=== PATIENT | male | born 1960 | race Caucasian/White ===

== ENCOUNTER 2018-04-11 08:35 | Inpatient (IN) ==
--- NOTE | 2018-04-11 09:06 | ED ---
HPI General Chief Complaint: Psychiatric Symptoms Stated Complaint: Psych Screen/POPD Time Seen by Provider: 04/11/18 08:59 Source: patient Mode of arrival: ambulatory Limitations: no limitations History of Present Illness HPI Narrative: 57-year-old male presents to the emergency department under Nunes act. According to the Nunes act report the patient has been acting erratic over the last month after returning from [facility] and viktoriya dengue fever. He has been hearing voices and thoughts to harm others. He stated to law enforcement that he would kick him in the "balls" in order to be Nunes acted. The patient requested help. He is not currently on medication are diagnosed with any disorder. The patient through his suitcase and while [place]. On my examination the patient states he has been hearing "a voice" for some time now, and has been telling him to harm himself at times and to do other things. He also states the voice is trying to convince him that he is "the antichrist." Today the voices told him to focus puller and dropped his suitcase off on I for and then to throw his wallet out the window, which he did both. He says he has been feeling depressed since his divorce about 3 years ago and this is when onset of symptoms, mainly occurred. Apparently they have worsened after viktoriya dengue fever in [facility] a month ago. Denies suicidal or homicidal ideations. Has had thoughts of suicide in the past and has thought of shooting himself in the face with a gun. 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 Has access to guns in his home. Has someone who can remove the weapons from his home. Denies history of suicidal attempts, only thoughts. Reports hearing voices. Denies visual hallucinations. Denies drug, alcohol, tobacco use. Has no emergent medical complaints at this time. Denies chest pain, shortness of breath, abdominal pain, change in urine or stool. Has seen a psychiatrist in the past after his divorce for depression, but without medicinal treatment. Denies other psychiatric history. History of hypothyroidism and takes Synthroid. Has a primary care provider for follow-up. No known allergies. Has no other medical complaints. No other modifying factors or associated signs and symptoms. Related Data Home Medications Medication Instructions Recorded Confirmed levothyroxine 75 mcg PO DAILY 04/11/18 04/11/18 niacin 1,000 mg PO DAILY 04/11/18 04/11/18 Allergies Allergy/AdvReac Type Severity Reaction Status Date / Time No Known Allergies Allergy Verified 04/11/18 08:59 Review of Systems ROS: all other systems reviewed are negative PMFSH History History Provided By: Patient Medical History Medical History Hypothyroid (Acute) Social History Social History Substance History: No History of Abuse and Past History Second Hand Smoke Exposure: No Smoking Status: Former smoker Tobacco Type: Cigarettes How Often Do You Have a Drink Containing Alcohol: 2 to 3 times a week Recent Travel in [facility] within the Last 8 Weeks: No Recent Out of Country Travel within the Last 8 Weeks: No Exam Narrative Exam Narrative: GENERAL: Well-nourished, well-developed male patient, in no acute distress SKIN: Warm and dry. HEAD: Atraumatic. Normocephalic. EYES: Pupils equal and round. ENT: Mucosa pink and moist. NECK: Supple. Trachea midline. CARDIOVASCULAR: Regular rate and rhythm. No murmur appreciated. RESPIRATORY: No accessory muscle use. Clear to auscultation. Breath sounds equal bilaterally. GASTROINTESTINAL: Abdomen soft, non-tender, nondistended. Hepatic and splenic margins not palpable. Bowel sounds are active 4 quadrants. MUSCULOSKELETAL: No obvious deformities. No clubbing. No cyanosis. No edema. NEUROLOGICAL: Awake and alert. Oriented 3. No obvious cranial nerve deficits. Motor grossly within normal limits. Normal speech. Moves all extremities. 5/5 strength to all extremities. PSYCHIATRIC: No delusional thought processes. No hallucinations. Course Initial Documented Vital Signs Temperature 97.5 F L 04/11/18 08:44 Pulse Rate 75 04/11/18 08:44 Respiratory Rate 18 04/11/18 08:44 Blood Pressure 181/86 H 04/11/18 08:44 Pulse Oximetry 97 04/11/18 08:44 Last Documented Vital Signs Temperature 98.1 F 04/14/18 05:08 Pulse Rate 71 04/14/18 05:08 Respiratory Rate 16 04/14/18 05:08 Blood Pressure 104/58 L 04/14/18 05:08 Pulse Oximetry 98 04/13/18 16:35 Medical Decision Making MDM Narrative Medical decision making narrative: Patient presents under a Nunes act. Physical examination and vital signs are essentially unremarkable. Patient has no medical complaints to report. Psych screen has been ordered. If the laboratory results are unremarkable, the patient will be medically cleared for psychiatric evaluation and disposition. Medical Screen Exam Complete: Yes Emergency Medical Condition: Yes Differential Diagnosis Differential Diagnosis: Hallucinations, psychosis, suicidal ideation, homicidal ideation, schizophrenia, bipolar, medical clearance for psychiatric evaluation Lab Data Result diagrams: 04/11/18 10:00 04/13/18 08:15 Lab Results 04/11/18 04/11/18 04/11/18 Range/Units 10:00 10:00 10:00 WBC 8.0 (4.0-11.0) th/mm3 RBC 4.56 (4.50-5.90) mil/mm3 Hgb 15.3 (13.0-17.0) gm/dL Hct 43.8 (39.0-51.0) % MCV 95.8 (80.0-100.0) fL MCH 33.5 (27.0-34.0) pg MCHC 35.0 (32.0-36.0) % RDW 13.4 (11.6-17.2) % Plt Count 303 (150-450) th/mm3 MPV 8.9 (7.0-11.0) fL Neut % (Auto) 76.3 H (16.0-70.0) % Lymph % (Auto) 15.3 (9.0-44.0) % Sanders % (Auto) 7.9 (0.0-8.0) % Eos % (Auto) 0.3 (0.0-4.0) % Baso % (Auto) 0.2 (0.0-2.0) % Neut # (Auto) 6.1 (1.8-7.7) th/mm3 Lymph # (Auto) 1.2 (1.0-4.8) th/mm3 Sanders # (Auto) 0.6 (0.0-0.9) th/mm3 Eos # (Auto) 0.0 (0.0-0.4) th/mm3 Baso # (Auto) 0.0 (0.0-0.2) th/mm3 WBC Differential . Differential Comment Auto diff final ESR (0-20) mm/hr Sodium 136 (136-145) meq/L Potassium 3.8 (3.5-5.1) meq/L Chloride 100 (98-107) meq/L Carbon Dioxide 25.4 (21.0-32.0) meq/L Anion Gap 11 (5-15) meq/L BUN 8 (7-18) mg/dL Creatinine 1.16 (0.60-1.30) mg/dL Estimated GFR 65 L (>89) mL/min Random Glucose 108 H (74-106) mg/dL Hemoglobin A1c (4.3-6.0) % Calcium 8.6 (8.5-10.1) mg/dL Magnesium 1.9 (1.5-2.5) mg/dL Total Bilirubin 1.4 H (0.2-1.0) mg/dL AST 29 (15-37) U/L ALT 35 (12-78) U/L Alkaline Phosphatase 74 (45-117) U/L Ammonia (11-32) mcmol/L Total Protein 7.8 (6.4-8.2) g/dL Albumin 4.1 (3.4-5.0) g/dL Triglycerides (42-150) mg/dL Cholesterol (120-200) mg/dL LDL Cholesterol, Calc (0-99) mg/dL HDL Cholesterol (40.0-60.0) mg/dL Cholesterol/HDL Ratio Ratio Vitamin B12 (193-986) pg/mL Folate (3.1-17.5) ng/mL TSH 1.510 (0.358-3.740) uIU/mL Salicylates Less than 1.7 L (2.8-20.0) mg/dL Urine Opiates Screen (Neg) Acetaminophen Less than 2.0 L (10.0-30.0) mcg/mL Ur Barbiturates Screen (Neg) Ur Amphetamines Screen (Neg) U Benzodiazepines Scrn (Neg) Urine Cocaine Screen (Neg) U Cannabinoids Screen (Neg) Serum Alcohol Less than 3 (0-5) mg/dL HIV 1&2 Ab/P24 Ag 4thGn (Nonreactive) 04/11/18 04/12/18 04/12/18 Range/Units 10:00 08:30 08:30 WBC (4.0-11.0) th/mm3 RBC (4.50-5.90) mil/mm3 Hgb (13.0-17.0) gm/dL Hct (39.0-51.0) % MCV (80.0-100.0) fL MCH (27.0-34.0) pg MCHC (32.0-36.0) % RDW (11.6-17.2) % Plt Count (150-450) th/mm3 MPV (7.0-11.0) fL Neut % (Auto) (16.0-70.0) % Lymph % (Auto) (9.0-44.0) % Sanders % (Auto) (0.0-8.0) % Eos % (Auto) (0.0-4.0) % Baso % (Auto) (0.0-2.0) % Neut # (Auto) (1.8-7.7) th/mm3 Lymph # (Auto) (1.0-4.8) th/mm3 Sanders # (Auto) (0.0-0.9) th/mm3 Eos # (Auto) (0.0-0.4) th/mm3 Baso # (Auto) (0.0-0.2) th/mm3 WBC Differential Differential Comment ESR (0-20) mm/hr Sodium (136-145) meq/L Potassium (3.5-5.1) meq/L Chloride (98-107) meq/L Carbon Dioxide (21.0-32.0) meq/L Anion Gap (5-15) meq/L BUN (7-18) mg/dL Creatinine (0.60-1.30) mg/dL Estimated GFR (>89) mL/min Random Glucose (74-106) mg/dL Hemoglobin A1c 5.2 (4.3-6.0) % Calcium (8.5-10.1) mg/dL Magnesium (1.5-2.5) mg/dL Total Bilirubin (0.2-1.0) mg/dL AST (15-37) U/L ALT (12-78) U/L Alkaline Phosphatase (45-117) U/L Ammonia (11-32) mcmol/L Total Protein (6.4-8.2) g/dL Albumin (3.4-5.0) g/dL Triglycerides 82 (42-150) mg/dL Cholesterol 234 H (120-200) mg/dL LDL Cholesterol, Calc 162 H (0-99) mg/dL HDL Cholesterol 55.3 (40.0-60.0) mg/dL Cholesterol/HDL Ratio 4.23 Ratio Vitamin B12 (193-986) pg/mL Folate (3.1-17.5) ng/mL TSH (0.358-3.740) uIU/mL Salicylates (2.8-20.0) mg/dL Urine Opiates Screen Neg (Neg) Acetaminophen (10.0-30.0) mcg/mL Ur Barbiturates Screen Neg (Neg) Ur Amphetamines Screen Neg (Neg) U Benzodiazepines Scrn Neg (Neg) Urine Cocaine Screen Neg (Neg) U Cannabinoids Screen Neg (Neg) Serum Alcohol (0-5) mg/dL HIV 1&2 Ab/P24 Ag 4thGn (Nonreactive) 04/12/18 04/12/18 04/12/18 Range/Units 13:04 13:04 13:04 WBC (4.0-11.0) th/mm3 RBC (4.50-5.90) mil/mm3 Hgb (13.0-17.0) gm/dL Hct (39.0-51.0) % MCV (80.0-100.0) fL MCH (27.0-34.0) pg MCHC (32.0-36.0) % RDW (11.6-17.2) % Plt Count (150-450) th/mm3 MPV (7.0-11.0) fL Neut % (Auto) (16.0-70.0) % Lymph % (Auto) (9.0-44.0) % Sanders % (Auto) (0.0-8.0) % Eos % (Auto) (0.0-4.0) % Baso % (Auto) (0.0-2.0) % Neut # (Auto) (1.8-7.7) th/mm3 Lymph # (Auto) (1.0-4.8) th/mm3 Sanders # (Auto) (0.0-0.9) th/mm3 Eos # (Auto) (0.0-0.4) th/mm3 Baso # (Auto) (0.0-0.2) th/mm3 WBC Differential Differential Comment ESR (0-20) mm/hr Sodium (136-145) meq/L Potassium (3.5-5.1) meq/L Chloride (98-107) meq/L Carbon Dioxide (21.0-32.0) meq/L Anion Gap (5-15) meq/L BUN (7-18) mg/dL Creatinine (0.60-1.30) mg/dL Estimated GFR (>89) mL/min Random Glucose (74-106) mg/dL Hemoglobin A1c (4.3-6.0) % Calcium (8.5-10.1) mg/dL Magnesium (1.5-2.5) mg/dL Total Bilirubin (0.2-1.0) mg/dL AST (15-37) U/L ALT (12-78) U/L Alkaline Phosphatase (45-117) U/L Ammonia 16 (11-32) mcmol/L Total Protein (6.4-8.2) g/dL Albumin (3.4-5.0) g/dL Triglycerides (42-150) mg/dL Cholesterol (120-200) mg/dL LDL Cholesterol, Calc (0-99) mg/dL HDL Cholesterol (40.0-60.0) mg/dL Cholesterol/HDL Ratio Ratio Vitamin B12 671 (193-986) pg/mL Folate Greater than 20.0 H (3.1-17.5) ng/mL TSH (0.358-3.740) uIU/mL Salicylates (2.8-20.0) mg/dL Urine Opiates Screen (Neg) Acetaminophen (10.0-30.0) mcg/mL Ur Barbiturates Screen (Neg) Ur Amphetamines Screen (Neg) U Benzodiazepines Scrn (Neg) Urine Cocaine Screen (Neg) U Cannabinoids Screen (Neg) Serum Alcohol (0-5) mg/dL HIV 1&2 Ab/P24 Ag 4thGn Nonreactive (Nonreactive) 04/12/18 04/13/18 Range/Units 13:04 08:15 WBC (4.0-11.0) th/mm3 RBC (4.50-5.90) mil/mm3 Hgb (13.0-17.0) gm/dL Hct (39.0-51.0) % MCV (80.0-100.0) fL MCH (27.0-34.0) pg MCHC (32.0-36.0) % RDW (11.6-17.2) % Plt Count (150-450) th/mm3 MPV (7.0-11.0) fL Neut % (Auto) (16.0-70.0) % Lymph % (Auto) (9.0-44.0) % Sanders % (Auto) (0.0-8.0) % Eos % (Auto) (0.0-4.0) % Baso % (Auto) (0.0-2.0) % Neut # (Auto) (1.8-7.7) th/mm3 Lymph # (Auto) (1.0-4.8) th/mm3 Sanders # (Auto) (0.0-0.9) th/mm3 Eos # (Auto) (0.0-0.4) th/mm3 Baso # (Auto) (0.0-0.2) th/mm3 WBC Differential Differential Comment ESR 7 (0-20) mm/hr Sodium 140 (136-145) meq/L Potassium 3.7 (3.5-5.1) meq/L Chloride 105 (98-107) meq/L Carbon Dioxide 24.3 (21.0-32.0) meq/L Anion Gap 11 (5-15) meq/L BUN 15 (7-18) mg/dL Creatinine 1.18 (0.60-1.30) mg/dL Estimated GFR 63 L (>89) mL/min Random Glucose 131 H (74-106) mg/dL Hemoglobin A1c (4.3-6.0) % Calcium 8.7 (8.5-10.1) mg/dL Magnesium (1.5-2.5) mg/dL Total Bilirubin (0.2-1.0) mg/dL AST (15-37) U/L ALT (12-78) U/L Alkaline Phosphatase (45-117) U/L Ammonia (11-32) mcmol/L Total Protein (6.4-8.2) g/dL Albumin (3.4-5.0) g/dL Triglycerides (42-150) mg/dL Cholesterol (120-200) mg/dL LDL Cholesterol, Calc (0-99) mg/dL HDL Cholesterol (40.0-60.0) mg/dL Cholesterol/HDL Ratio Ratio Vitamin B12 (193-986) pg/mL Folate (3.1-17.5) ng/mL TSH (0.358-3.740) uIU/mL Salicylates (2.8-20.0) mg/dL Urine Opiates Screen (Neg) Acetaminophen (10.0-30.0) mcg/mL Ur Barbiturates Screen (Neg) Ur Amphetamines Screen (Neg) U Benzodiazepines Scrn (Neg) Urine Cocaine Screen (Neg) U Cannabinoids Screen (Neg) Serum Alcohol (0-5) mg/dL HIV 1&2 Ab/P24 Ag 4thGn (Nonreactive) Imaging Data Radiologist's impression: Head MRI 04/12/18 00:00 CONCLUSION: 1. Negative MR Brain with and without contrast. 2. No evidence of cerebral edema, meningeal enhancement, restricted diffusion or inflammatory disease. Discharge Plan Discharge Disposition Patient Disposition: 30 Still Patient Discharge Condition Condition: Stable Discharge Details Diagnosis: Encounter for psychiatric assessment Physicians Team ED Provider: Lisseth Weaver ED Midlevel Provider: Ellen Hernandez Primary Care Provider: Primary Care Stephanie Ordonez Attending Provider: Michael Harper Other Providers: Rosemary Jin ; Td Cardenas Discharge Interventions Interventions: ED Discharge Assessment Last Done: 04/11/18 20:44 Vital Signs Last Done: 04/11/18 18:02 Status ED Status: Left Department Discharge Information Discharge Date/Time: 04/11/18 20:45
[2018-04-11 10:21] LABS: Baso % (Auto) 0.2 % (0.0-2.0); Eos % (Auto) 0.3 % (0.0-4.0); Hematocrit 43.8 % (39.0-51.0); Hemoglobin 15.3 gm/dL (13.0-17.0); Lymph # (Auto) 1.2 th/mm3 (1.0-4.8); Lymph % (Auto) 15.3 % (9.0-44.0); Mean Corpuscular Hemoglobin 33.5 pg (27.0-34.0); Mean Corpuscular Volume 95.8 fL (80.0-100.0); Mean Platelet Volume 8.9 fL (7.0-11.0); Mono # (Auto) 0.6 th/mm3 (0.0-0.9); Mono % (Auto) 7.9 % (0.0-8.0); Neut # (Auto) 6.1 th/mm3 (1.8-7.7); Neut % (Auto) 76.3 % (16.0-70.0); Platelet Count 303 th/mm3 (150-450); Red Blood Count 4.56 mil/mm3 (4.50-5.90); Red Cell Distribution Width 13.4 % (11.6-17.2)
[2018-04-11 11:42] LABS: Alanine Aminotransferase 35 U/L (12-78); Albumin 4.1 g/dL (3.4-5.0); Anion Gap 11 meq/L (5-15); Aspartate Aminotransferase 29 U/L (15-37); Blood Urea Nitrogen 8 mg/dL (7-18); Calcium 8.6 mg/dL (8.5-10.1); Carbon Dioxide 25.4 meq/L (21.0-32.0); Chloride 100 meq/L (98-107); Glomerular Filtration Rate 65 mL/min (>89); Glucose,Random 108 mg/dL (74-106); Magnesium 1.9 mg/dL (1.5-2.5); Potassium 3.8 meq/L (3.5-5.1); Sodium 136 meq/L (136-145)
[2018-04-11 11:51] LABS: Alkaline Phosphatase 74 U/L (45-117); Total Protein 7.8 g/dL (6.4-8.2)
[2018-04-11 12:47] LABS: Amphetamine Screen,Urine Neg (Neg); Barbiturate Screen,Urine Neg (Neg); Cannabinoid Screen,Urine Neg (Neg); Cocaine Screen,Urine Neg (Neg)
[2018-04-11 13:12] LABS: Opiate Screen,Urine Neg (Neg)
[2018-04-11] MEDS ORDERED: LORazepam 1 MG Tablet PO PRN (21:23)
[2018-04-11] MEDS ORDERED: Acetaminophen 325 MG Tablet PO PRN (21:23)
[2018-04-11] MEDS ORDERED: Aluminum/Magnesium/Simethacone Susp 30 ML UDC PO PRN (21:23)
[2018-04-12] MEDS ORDERED: Haloperidol Inj 5 MG/ML Ampul ONE (05:44)
[2018-04-12] MEDS ORDERED: Haloperidol Inj 5 MG/ML Ampul IM ONE (06:00)
[2018-04-12 09:59] LABS: Chol/HDL Ratio 4.23 Ratio; HDL Cholesterol 55.3 mg/dL (40.0-60.0)
--- NOTE | 2018-04-12 11:42 | MH ---
cc: Td Ortega MD DATE OF ADMISSION: 04/11/2018 ADMITTING DIAGNOSIS: 1. Unspecified psychosis, rule out primary psychotic illness such as schizophrenia, rule out psychosis due to a general medical or neurological condition. LEGAL STATUS: The patient is presently capacitated to consent for medication/treatment as well as for admission. Voluntary status. HISTORY OF PRESENT ILLNESS: The patient is a 57-year-old male with no reported previous psychiatric diagnoses, who presents under a Nunes Act by [employer] alleging that the patient has been acting erratic over the last month since returning from [facility] and viktoriya Dengue fever. He has been hearing voices and thoughts to harm others. He stated to one of the responding officers that he would "kick him in the balls in order to be Nunes Acted." Reviewing the electronic medical record, I see no previous psychiatric contact within our system. The patient seen and examined with nurse. Chart reviewed. Case discussed with nursing staff. The patient apparently had an episode of severe auditory hallucinations overnight and requested and received Haldol and Ativan IM to good effect. He has been no behavioral problem this morning. On my examination today, the patient is calm and cooperative. 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 He reports that he never saw a physician because he presumed that he had Dengue fever and knew that there was nothing but symptomatic treatment for this. He says that these symptoms have since resolved. He reports that about 3 weeks ago, he began hearing voices saying that he is the antichrist. He reports that this is a male voice unfamiliar to him, intermittent in nature and occurring inside his head. He describes this voice as "an open war cordoba in my brain." He denies that the voices are specifically instructing him to hurt himself or anyone else. He says rather that he finds the voices to be maligned and was having thoughts of harm previously in order to avoid becoming the antichrist as he feared. He denies any suicidal or homicidal ideation, intent or plan at this time. He does note that these voices have happened several times in the past beginning around age 18 when he reports that he "renounced [employer] for a woman." He said that the last episode of voices occurred in 2013, again around some episode of a episcopalian crisis. Besides these voices, the patient endorses poor sleep and associated fatigue. He notes that the medications he received last night were helpful for his voices. I can elicit no depressive or hypomanic/manic symptoms besides the sleep disturbance. He does not describe any other hallucinatory material. No delusional material elicited. The remainder of the psychiatric ROS is negative. The patient has no acute physical complaints. PAST PSYCHIATRIC HISTORY: The patient denies a history of psychiatric diagnosis. He denies a history of inpatient or outpatient psychiatric treatment. He denies history of suicide attempts. FAMILY HISTORY: The patient denies family history of serious mental illness. He reports that he had a male cousin who by gunshot wound. CHEMICAL DEPENDENCY HISTORY: The patient reports a history of heavier drinking, but denies any substance use recently. SOCIAL HISTORY: The patient is with 1 son and a grandson. He is high school educated and previously worked as a police sergeant precinct for 25 years. He reports that he had been doing missionary work at the [facility] [employer] [place] in [facility]. He served 4 years in the [employer], but never saw combat. He lives alone. He does keep firearms in his home, but reports that his ex- will secure these. He denies any legal issues. He has never had any suicide plan involving a firearm. He is a Protestant. No reported history of trauma. PAST MEDICAL HISTORY: Includes a history of hypothyroidism, on Synthroid. MEDICATIONS: Include Synthroid and Niacin. ALLERGIES: NO KNOWN ALLERGIES. REVIEW OF SYSTEMS: Except as noted in HPI, all this is negative. PHYSICAL EXAMINATION: VITAL SIGNS: Temperature 98.6, pulse 85, respirations 18, blood pressure 143/84, pulse oximetry 97% on room air. GENERAL: Physical examination was completed by the ED provider. On my examination today, the patient appears to be in no acute physical distress. NEUROLOGICAL: No motor abnormalities noted. In particular, no tremor. No dystonia, no dyskinesia. LABORATORY DATA: Reviewed: CBC is unremarkable. CMP reveals decreased GFR at 65%, mild hyperglycemia in a nonfasting sample at 108 and hyperbilirubinemia at 1.4. TSH is within normal limits. Hemoglobin A1c is pending. Lipid panel reveals elevated total cholesterol and LDL cholesterol. Urine toxicology is negative. Alcohol level is undetectable. MENTAL STATUS EXAMINATION: The patient is in hospital attire. He is awake and alert and oriented x4. He is well groomed. Speech is within normal limits for rate, tone, and volume. Language and fund of knowledge are average. Focus and concentration are intact. Memory is grossly intact on clinical exam. Mood is fair and affect is full and reactive. Thought process linear. No loosening of associations. No delusional material elicited. Endorses auditory hallucinations as noted above. No other hallucinatory material. Denies suicidal or homicidal ideation, intent or plan. Insight and judgment are adequate. ASSESSMENT: This is a 57-year-old male with psychiatric history as detailed above, who presents under a Nunes Act. On my examination today, the patient reports onset over the last few weeks of auditory hallucinations saying that the patient will become the antichrist. These voices are particularly distressing for the patient, but seem to occur in isolation except for associated poor sleep. In particular, the patient does not describe any delusional material such as might be seen in a primary psychotic illness and does not describe any mood symptoms such as might be seen in a mood disorder with psychotic features. However, the patient does report a history of multiple previous episodes of auditory hallucinations similar to those experienced presently, and these episodes were reportedly self-limited and the patient did not seek psychiatric help interpreting them instead as a spiritual problem. It is possible that the patient has a primary psychotic illness, previously undiagnosed, but the report of febrile illness while working as a missionary in [facility] raises the specter of possible encephalitis or other neurological condition with psychiatric sequelae. I will plan to admit the patient to the Inpatient Psychiatric Unit for safety, observation and stabilization. Admit inpatient. Voluntary status. For symptomatic treatment of the patient's auditory hallucinations and poor sleep, I will initiate Zyprexa 5 mg at bedtime. I have discussed with the patient that this represents an empiric treatment while we explore etiological factors that may be driving his auditory hallucinations. Atarax as needed for anxiety. Melatonin as needed for sleep. R/B/A for medications discussed with the patient, and in particular, I have reviewed with him the motor and metabolic side effects of antipsychotic therapy. To further workup the possibility of general medical or neurological cause, I will obtain an MRI of the brain with and without contrast and also obtain an EEG. I will also pursue general psychosis workup laboratories. I will also request infectious disease and neurology consultation in hopes that consultants may provide further recommendations regarding workup and management of any medical/neurological cause for the patient's psychiatric symptoms. Check an EKG for QTc. Check a BMP in the morning to followup on decreased GFR. Vitals every shift. Counselor to see. Disposition planning. Collateral information ESTIMATED LENGTH OF STAY: Five to seven days. MD GUANAKO Chu/maryann/heriberto , 11:07 AM , 11:21 AM CARLENE
[2018-04-12 12:25] LABS: Hemoglobin A1c 5.2 % (4.3-6.0)
[2018-04-12 14:06] LABS: Vitamin B12 671 pg/mL (193-986)
--- NOTE | 2018-04-12 16:19 | P.CONID ---
History of Present Illness Service: Infectious disease Consult date: 04/12/18 Requesting Physician: Td Ortega Reason for Consult: Evaluate patient with history of fever Primary Care Provider: No Primary Care Physician History of Present Illness: Patient seen and examined. Records reviewed. Patient is a 57-year-old male, admitted to the hospital after he was [place] acted. He was apparently behaving erratically, and was having some auditory hallucinations. Patient gave a history that he was in [facility] and while in [facility] he had episodes of fever and chills. He arrived [facility] around January, and he started getting sick around the first week of February. He had some fevers and some arthralgias. He also noted that he had a pink rash at that time. He is not sure how long the rash stayed, but he had sensitivity of his skin for at least a month. His eyes felt irritated and hot but he did not really see any redness in his eyes or his or any drainage. He had some nausea but no vomiting. No abdominal pain diarrhea. He came back to the [facility] around the end of February and he claimed that since he has been back he started having some auditory hallucinations. His symptoms have all resolved except he still would have some discomfort in his eyes. Patient did not seek any medical help while in [facility]. His sister was the one who brought up this issue about dengue in [place], but he when he was over there there was no mention that there was any unusual occurrence of doing good during that time. Since he has been here he has not been febrile. His HIV is negative. CBC normal. ESR 7. Infectious disease consultation has been requested to evaluate if any infectious disease could cause a late onset of neurological problem. Review of Systems Constitutional: Reports lack of energy, Reports weakness, Denies fever(s), Denies night sweats Eyes: Reports dry eyes, Reports irritation, Denies discharge Ears, Nose, Mouth, and Throat: Denies dental pain, Denies difficulty swallowing , Denies nasal congestion, Denies nasal discharge, Denies neck pain, Denies sore throat Cardiovascular: Denies chest pain, Denies shortness of breath Respiratory: Denies chest congestion, Denies cough, Denies shortness of breath Gastrointestinal: Denies abdominal pain, Denies loose stools, Denies nausea, Denies pain with swallowing, Denies vomiting Genitourinary: Denies difficulty urinating, Denies painful urination Musculoskeletal: Reports joint pain, Reports joint swelling Skin/Breast: Reports rash, Denies sores, Denies wounds PMFSH - History History Provided By: Patient - Medical History Medical History: Medical History (Last Reviewed 04/12/18 @ 16:15 by Rosemary Jin MD) Hypercholesterolemia Hypothyroid - Surgical History Surgical History: Surgical History (Last Reviewed 04/12/18 @ 16:15 by Rosemary Jin MD) Hx of tonsillectomy - Tobacco History Second Hand Smoke Exposure: No Tobacco Use In Past 30 Days: Yes Smoking Status: Former smoker Tobacco Type: Cigarettes - Alcohol History How Often Do You Have a Drink Containing Alcohol: 2 to 3 times a week - Substance Use History Substance History: No History of Abuse, Past History - Substance Use Type Alcohol Status: Sustained Remission Route Used: By Mouth Comment: Patient reports a past history of intermittent alcohol abuse. Patient denies being an alcoholic or having any significant consequences as a result of his alcohol use. Sister Sofi confirmed these statements. - Travel History Recent Travel in the [place] Within the Last 8 Weeks: No Recent Travel Out of the Country Within the Last 8 Weeks: No - Immunization History Tetanus Immunization: <5 Years Hx Influenza Vaccine This Season: No Medications and Allergies Active Medications: Active Medications Acetaminophen (Tylenol) 650 mg PO Q4H PRN PRN Reason: Pain 1-5 or Temp >101F Al Hydrox/Mg Hydrox/Simethicone (Mag-Al Plus Susp Liq) 30 ml PO Q6H PRN PRN Reason: DYSPEPSIA Al Hydroxide/Mg Hydroxide (Milk Of Magnesia Liq) 30 ml PO Q12H PRN PRN Reason: Mild Constipation Hydroxyzine HCl (Atarax) 25 mg PO Q6H PRN PRN Reason: ANXIETY Levothyroxine Sodium (Synthroid) 75 mcg PO DAILY@0600 JESSIE Melatonin (Melatonin) 5 mg PO HS PRN PRN Reason: INSOMNIA Niacin (Slo-Niacin) 1,000 mg PO DAILY JESSIE Nicotine (Habitrol 21 Mg Patch.24 Hr) 1 patch T-DERMAL DAILY JESSIE Last Admin: 04/12/18 13:57 Dose: Not Given Olanzapine (Zyprexa) 5 mg PO HS JESSIE Patch Removal (Remove Old Patch) 0 each T-DERMAL HS JESSIE Allergies Allergy/AdvReac Type Severity Reaction Status Date / Time No Known Allergies Allergy Verified 04/11/18 08:59 Home Medications Medication Instructions Recorded Confirmed Type levothyroxine 75 mcg PO DAILY 04/11/18 04/11/18 History niacin 1,000 mg PO DAILY 04/11/18 04/11/18 History Exam Vital signs: Vital Signs 04/11/18 18:02 04/11/18 22:25 04/12/18 06:24 Temperature 98.3 F 98.6 F Pulse Rate 90 85 85 Respiratory Rate 18 16 18 Blood Pressure 139/81 154/86 H 143/84 H Pulse Oximetry 96 96 97 Intake & Output 04/11/18 04/12/18 04/12/18 18:59 06:59 18:59 Weight 97.522 kg 97.9 kg Other: Weight On Admission 97.9 kg Narrative: Physical examination GENERAL: Patient is a well-nourished, muscula, well-developed patient, awake and alert, not in respiratory distress. SKIN: Cool and dry. No generalized rash, no ecchymoses and no evidence of embolic lesions. HEAD: Atraumatic. Normocephalic. No temporal wasting, or tenderness. EYES: [place] conjunctiva. No petechia or hemorrhage. Pupils equal, round and reactive to light. Extraocular movements full and intact. No scleral icterus. No injection or drainage. EARS, NOSE AND THROAT: Nose without bleeding or purulent nasal discharge. No sinus tenderness. Mucous membranes pink and moist. No oral lesions noted. No exudate. No oral thrush. NECK: Trachea midline. Supple and not tender, no meningeal signs CARDIOVASCULAR: Regular rate and rhythm. No murmurs, rubs or gallops heard RESPIRATORY: Clear to auscultation. Breath sounds equal bilaterally. No rales , wheezing or rhonchi ABDOMEN: Soft, non-tender, nondistended. Bowel sounds present and normoactive. No guarding. No rebound. No organomegaly. EXTREMITIES: No clubbing, cyanosis, or edema. No joint effusion, has good ROM. No calf tenderness. Well perfused and warm. NEUROLOGICAL: Awake and alert. Cranial nerves grossly intact. Motor grossly within normal limits. PSYCHIATRIC: Normal affect, calm and cooperative. LINE: No evidence of infection Results - Labs CBC & Chem 7: 04/11/18 10:00 04/11/18 10:00 Labs: Laboratory Results - last 24 hr 04/12/18 04/12/18 04/12/18 08:30 08:30 13:04 ESR Hemoglobin A1c 5.2 Ammonia 16 Triglycerides 82 Cholesterol 234 H LDL Cholesterol, Calc 162 H HDL Cholesterol 55.3 Cholesterol/HDL Ratio 4.23 Vitamin B12 Folate HIV 1&2 Ab/P24 Ag 4thGn 04/12/18 04/12/18 04/12/18 13:04 13:04 13:04 ESR 7 Hemoglobin A1c Ammonia Triglycerides Cholesterol LDL Cholesterol, Calc HDL Cholesterol Cholesterol/HDL Ratio Vitamin B12 671 Folate Greater than 20.0 H HIV 1&2 Ab/P24 Ag 4thGn Nonreactive Assessment and Plan - Plan Impression Episode of fever and chills, resolved, ?viral illness Auditory hallucinations Recommendations Most infections will not result in a psychiatric type symptoms In viral infections causing FILAMENT COIL WINDER manifestations, they occur fairly early along with the systemic illness He has no evidence of active infection at this time Thank you for this consultation I explained this to the patient D/W RN I will sign off Please reconsult if with any other ID issue or question
--- NOTE | 2018-04-12 17:15 | ECG ---
Date Performed: 04/12/2018 Time Performed: 11:33:30 PTAGE: 57 years EKG: Sinus rhythm WITH SINUS ARRHYTHMIA MARKED LEFT AXIS DEVIATION INCOMPLETE RIGHT BUNDLE BRANCH BLOCK ABNORMAL ECG NO PREVIOUS TRACING DOCTOR: Jose Lovelace Interpretating Date/Time 04/12/2018 17:12:14
[2018-04-12] MEDS ORDERED: Gadobutrol PF 10 MMOL/10 ML Vial (for RAD) IV.SIG ONE (17:23)
--- NOTE | 2018-04-12 17:50 | MR ---
EXAM DATE: 04/12/2018 5:42 PM EST AGE/SEX: 57 years / Male INDICATIONS: Encephalitis. CLINICAL DATA: This is the patient's initial encounter. Patient reports that signs and symptoms have been present for 1 day and indicates a pain score of 0/10. MEDICAL/SURGICAL HISTORY: Hypercholesterolemia. Tonsillectomy. Hernia. COMPARISON: No prior exams available for comparison. TECHNIQUE: Multiplanar, multisequence examination of the brain was performed without and with 10 ml G adavist (gadobutrol) contrast as a single exam dose. FINDINGS: Cerebrum: The ventricles are normal for age. No evidence of midline shift, mass lesion, hemorrhage or acute infarction. No extraaxial fluid collections are seen. The pituitary gland and suprasellar cistern are normal in configuration. White Matter: No significant signal abnormalities are seen in the white matter. Posterior Fossa: The cerebellum and brainstem are intact. The 4th ventricle is midline. The cerebel lopontine angle is unremarkable. The cerebellar tonsils are normal in position. Diffusion Imaging: No focal areas of restricted diffusion are seen. No evidence of acute infarction . Extracranial: The visualized portions of the orbits and paranasal sinuses are unremarkable. Post Contrast: No abnormal areas of parenchymal or dural enhancement. No evidence of blood-brain ba rrier breakdown. CONCLUSION: 1. Negative MR Brain with and without contrast. 2. No evidence of cerebral edema, meningeal enhancement, restricted diffusion or inflammatory diseas e. Electronically signed by: Gustabo Trujillo MD 04/12/2018 5:49 PM EST
--- NOTE | 2018-04-12 19:03 | MB ---
cc: Td Aquino MD DATE: 04/12/2018 HISTORY OF PRESENT ILLNESS: Sathish Lakhani is a 57-year-old right-handed man with hypercholesterolemia, hypothyroidism. 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 He has been in [facility] for about 2 years. Said that he had dengue fever for about 3 weeks in February and then around 03/21/2018, for the last 3 weeks, he began hearing voices that said he was the antichrist. He has never had anything exactly like that before. He says he thinks this may be from guilt, because he renounced [place] when he was 18 years old to be with a girl. He was not comatose or confused over in [facility] when he had the dengue fever, no neurological involvement. No organ involvement either. SOCIAL HISTORY: Nonsmoker, drinker, lives by himself. FAMILY HISTORY: Negative cancer, stroke. REVIEW OF SYSTEMS: He denies any history of hypertension, diabetes, FL, stent, angioplasty, a fib, Coumadin, heart problems, renal, hepatic or pulmonary disease, lupus, ulcer, cancer, seizure or stroke. He has occasional headaches maybe 1 a week. PHYSICAL EXAMINATION: VITAL SIGNS: Afebrile, pulse 86, respirations 16, blood pressure 134/70. NECK: There are no carotid bruits. HEART: Regular rate and rhythm. I did not detect a murmur. NEUROLOGIC: Pupils are equal. Visual izaguirre are full. Extraocular movements intact without nystagmus. Face is symmetric with normal sensation. Tongue was midline with no drift. Normal strength in upper and lower extremities bilaterally. DTRs are 1+ and symmetric throughout. Toes downgoing bilaterally. Pinprick is intact throughout. He is not ataxic on [id number]. Speech is slow. He is not aphasic. He knew the day of the week. Speech is fluent. He is not aphasic. Affect appears normal. LABORATORY DATA: CBC is normal. Sedimentation rate is normal. RPR is pending. HIV was negative. GIANNI is pending. Urine drug screen was negative. BMP is normal. LFTs normal. Total protein normal. LDL 162. Thiamine is pending, B12 and folate, TSH normal, sedimentation rate normal. Had a brain MRI done that was negative. MRI with and without contrast read as normal. IMPRESSION: He looks neurologically intact. There does not appear to be any active neurological disease. We can check an EEG on him and I agree with all the blood work that was done and it appears most of it is normal. Please have the psych team follow up the RPR and GIANNI, but I think overall he looks well neurologically. There is no evidence he had any neurological involvement with dengue fever or other illnesses. He had some chronic diarrhea on and off in [facility], but never any other major illness. We will check an EEG. If that is abnormal, please call me. Otherwise, I am going to sign off the case. MD ANTWAN Slater/bella , 06:31 PM , 06:39 PM
--- NOTE | 2018-04-12 20:17 | MG ---
cc: Td Aquino MD ELECTROENCEPHALOGRAM NUMBER: [id number] CLINICAL HISTORY: History of hearing voices. MEDICATIONS: 1. Haldol. 2. Ativan. DESCRIPTION: He is talking. He has some diffuse beta rhythms consistent with the Ativan use. Overall, the recording is synchronous and symmetric. A 10 Hz, 50 microvolt posterior rhythm is seen, synchronous and symmetric. No epileptiform or seizure activity is noted. There are no hemisphere asymmetries. Photic stimulation is performed without significant posterior driving. He fell asleep towards the end of recording, but did not quite reach stage II sleep. He had some snoring with that. Sleep apnea could be entertained. Hyperventilation was performed without any change in the background. IMPRESSION: Normal awake and sleep electroencephalogram. No evidence for a focal or diffuse abnormality. He did have some snoring and sleep apnea could be considered. Clinical correlation is needed. MD ANTWAN Slater/ugo , 07:18 PM , 07:21 PM
[2018-04-12] MEDS: Melatonin 5 MG Tablet PO PRN (21:44)
[2018-04-13] MEDS: Levothyroxine 75 MCG Tablet PO SCH (06:25)
[2018-04-13 09:20] LABS: Calcium 8.7 mg/dL (8.5-10.1); Carbon Dioxide 24.3 meq/L (21.0-32.0); Potassium 3.7 meq/L (3.5-5.1)
--- NOTE | 2018-04-13 18:23 | P.PNPSY ---
Subjective Remarks: Reviewed electronic medical records and discussed case with staff. Follow-up was conducted in the patient's room with JOSE Vera present. His nurse reports he has been compliant with his medications and has been improving. The patient states, "I am doing really good". He states that he slept great and his appetite's been wonderful. His speech is rapid and somewhat pressured. He reports that just prior to his psychosis and delusions he had not slept for several days and had an extremely increased intake of caffeine. I question given his story of various bouts of depression and "joyous" periods if he may not be suffering from bipolar disorder. He does report feeling much better after having had a good night sleep. He does still have some lab work pending. Assessment and Plan - Assessment (1) Unspecified psychosis Code(s): F29 - Unspecified psychosis not due to a substance or known physiological condition Status: Acute - Plan Plan: Patient will be reevaluated by the attending psychiatrist. Continue with current treatment plan. Justification for Continued Inpatient Stay: Moving this patient to a less restrictive environment would likely result in decompensation.
[2018-04-13] MEDS: Melatonin 5 MG Tablet PO PRN (20:50)
[2018-04-14] MEDS: Levothyroxine 75 MCG Tablet PO SCH (05:43)
--- NOTE | 2018-04-14 12:41 | P.PNPSY ---
Subjective Remarks: Reviewed medical record and discussed with nursing staff. Patient is in his room napping. Rounded with JOSE Kimball. Patient states that he feels that his mind is clear. 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 He endorses no auditory or visual hallucinations at this time. He feel that he was experiencing periods of minimal to no sleep which might have contributed to his paranoia and psychosis. He is eating and sleeping well. Denies SI/HI. Review of Systems All other systems reviewed negative except as stated in HPI Mental Status Examination Appearance: Appropriate Consciousness: Alert Orientation: Person, Place, Situation Motor Activity: Normal gait Speech: Unremarkable Language: Adequate Fund of Knowledge: Adequate Attention and Concentration: Adequate Memory: Unremarkable Mood: Appropriate Affect: Appropriate Thought Content: Appropriate Hallucination Type: None Delusion Type: None Suicidal Ideation: No Suicidal Plan: No Suicidal Intention: No Homicidal Ideation: No Homicidal Plan: No Homicidal Intention: No Insight: Fair Judgment: Impulsive Assessment and Plan - Assessment (1) Unspecified psychosis Code(s): F29 - Unspecified psychosis not due to a substance or known physiological condition Status: Acute - Plan Plan: Patient will be reevaluated by the attending psychiatrist. Continue with current treatment plan. Justification for Continued Inpatient Stay: Moving patient to a less restrictive environment may result in his decompensation.
[2018-04-14] MEDS: Melatonin 5 MG Tablet PO PRN (21:21)
[2018-04-15] MEDS: Levothyroxine 75 MCG Tablet PO SCH (06:02)
[2018-04-15 11:16] LABS: Anti-Nuclear Antibody Screen Neg (Neg)
--- NOTE | 2018-04-15 14:19 | P.PNPSY ---
Subjective Remarks: Patient seen in his room with medical student Guadalupe chart reviewed, patient compliant medication. Patient initially admitted by Dr. Td Ortega's H&P reviewed and agreed with. Patient is a voluntary patient. I have completed the initial inpatient psychiatric admission template orders and also did the reconciliation of medication patient states that the perceptual abnormalities that he was experiencing over the past 3 or 4 days have essentially gone away he feels safe and comfortable here. He is only had 1 or 2 doses of his Zyprexa. He states he did seek counseling once was going through his divorce a number of years ago but denies psychiatric hospitalization or other psychotropic medication. He does not give any significant criteria for manic episodes though at times he points to his chest and says it is quite full. He this may indicate an increase in energy and him. There is alcohol related problems in his family he denies mental illness in the family. However. 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 At this time he does not meet criteria for further inpatient psychiatric hospitalization we will increase his Zyprexa 10 mg at bedtime continue his other medications. Health is to be fairly short stay and can return to his family Review of Systems All other systems reviewed negative except as stated in HPI Mental Status Examination Appearance: Appropriate Consciousness: Alert Orientation: Person, Place, Date/Time, Situation Motor Activity: Normal gait Speech: Unremarkable Language: Adequate Fund of Knowledge: Adequate Attention and Concentration: Adequate Memory: Unremarkable Mood: Appropriate Affect: Other (Good range and intensity) Thought Process & Associations: Intact, Tangential (Mildly) Thought Content: Appropriate Hallucination Type: None Delusion Type: None Suicidal Ideation: No Suicidal Plan: No Suicidal Intention: No Homicidal Ideation: No Homicidal Plan: No Homicidal Intention: No Insight: Fair Judgment: Impulsive Assessment and Plan - Assessment (1) Brief psychotic disorder Code(s): F23 - Brief psychotic disorder Status: Acute - Plan Plan: Patient meets criteria for further observation and assessment on a voluntary basis. We will increase his Zyprexa 10 mg at bedtime continue observation for any mood swings or mood issues. Justification for Continued Inpatient Stay: At this time patient would decompensated placed on a lower level of care Discharge Planning: Probable return home with family Request Healthcare Surrogate/Guardian Advocate?: No
[2018-04-15] MEDS ORDERED: OLANZapine 10 MG Tablet PO SCH (21:00)
[2018-04-16] MEDS: Levothyroxine 75 MCG Tablet PO SCH (05:53)
--- NOTE | 2018-04-16 12:46 | P.PNPSY ---
Subjective Remarks: Patient seen in his room with medical student Guadalupe chart reviewed, patient compliant medication. Patient stated he is felt quite log at this morning after the increase in Zyprexa last night will decrease it back to 5 mg at at bedtime. Patient has some complaints of anxiety that appears fairly mild. We will continue the use of the Benadryl and/or Atarax. He denies suicidality or homicidality voices or visions for now continue treatment Review of Systems All other systems reviewed negative except as stated in HPI Mental Status Examination Appearance: Appropriate Consciousness: Alert Orientation: Person, Place, Date/Time, Situation Motor Activity: Normal gait Speech: Unremarkable Language: Adequate Fund of Knowledge: Adequate Attention and Concentration: Adequate Memory: Unremarkable Mood: Appropriate Affect: Other (Good range and intensity) Thought Process & Associations: Intact, Tangential (Mildly) Thought Content: Appropriate Hallucination Type: None Delusion Type: None Suicidal Ideation: No Suicidal Plan: No Suicidal Intention: No Homicidal Ideation: No Homicidal Plan: No Homicidal Intention: No Insight: Fair Judgment: Impulsive Assessment and Plan - Assessment (1) Brief psychotic disorder Code(s): F23 - Brief psychotic disorder Status: Acute - Plan Plan: Patient continues to show improvement denying suicidality or homicidality voices or visions. We will decrease Zyprexa to 5 mg at bedtime and continue to observe. Justification for Continued Inpatient Stay: At this time patient would decompensated placed on a lower level of care Discharge Planning: Probable return home with family Request Healthcare Surrogate/Guardian Advocate?: No
[2018-04-17] MEDS: Levothyroxine 75 MCG Tablet PO SCH (06:40)
--- NOTE | 2018-04-17 13:29 | P.DSPSY ---
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 Td Ortega under reports Tobacco Use In Past 30 Days: Yes How Often Do You Have a Drink Containing Alcohol: 2 to 3 times a week Hospital Course: Patient's hospital course was uneventful, he showed no behavioral problems. Though there is some initial isolation. He denied suicidality or homicidality voices or visions from the first day or 2 after hospitalization. There is some obsessing over his illness his diagnosis and treatment and future related to this. But he did show some insight into processing the positive aspects of what we were doing for him. He has been a decision to relocate from the [facility] here in [place] and the [facility] to be closer to his family. The sister will be picking him up she will be accompanying him back to the [facility] to close up his apartment and then return here. At this time patient reached maximum benefit of his hospitalization will be discharged today to himself with Rx times 1 month to follow-up stroke [place] act outpatient medication management and counseling - Discharge Discharge Date: 04/17/18 - Discharge Diagnosis (1) Encounter for psychiatric assessment Code(s): Z76.89 - Persons encountering health services in other specified circumstances Status: Acute Discharge Disposition: Home - Discharge Instructions Discharge Diet: Regular Diet Activities You Can Perform: Regular- No Restrictions - Discharge Time > 30 minutes Mental Status Examination Appearance: Appropriate Consciousness: Alert Orientation: Person, Place, Date/Time, Situation Motor Activity: Normal gait Speech: Unremarkable Language: Adequate Fund of Knowledge: Adequate Attention and Concentration: Adequate Memory: Unremarkable Mood: Appropriate Affect: Other (Good range and intensity) Thought Process & Associations: Intact, Tangential (Mildly) Thought Content: Appropriate Hallucination Type: None Delusion Type: None Suicidal Ideation: No Suicidal Plan: No Suicidal Intention: No Homicidal Ideation: No Homicidal Plan: No Homicidal Intention: No Insight: Fair Judgment: Impulsive Discharge/Advance Care Plan - Results Vital Signs: Last Vital Signs Temp 97.7 F 04/17/18 05:43 Pulse 75 04/17/18 05:43 Resp 16 04/17/18 05:43 BP 115/59 L 04/17/18 05:43 Pulse Ox 95 04/17/18 05:43 Lab Results: Laboratory Results Hemoglobin A1c 5.2 % (4.3-6.0) 04/12/18 08:30 Triglycerides 82 mg/dL (42-150) 04/12/18 08:30 Cholesterol 234 mg/dL (120-200) H 04/12/18 08:30 LDL Cholesterol, Calc 162 mg/dL (0-99) H 04/12/18 08:30 HDL Cholesterol 55.3 mg/dL (40.0-60.0) 04/12/18 08:30 TSH 1.510 uIU/mL (0.358-3.740) 04/11/18 10:00 Summary of Procedures: None done Imaging: ITS Impressions Head MRI 04/12/18 00:00 CONCLUSION: 1. Negative MR Brain with and without contrast. 2. No evidence of cerebral edema, meningeal enhancement, restricted diffusion or inflammatory disease. Pending Results: None - Medications Number of antipsychotic medications at discharge: 1 - Discharge Care Plan Goals to Promote Your Health: * To prevent worsening of your condition and complications * To maintain your health at the optimal level Directions to Meet Your Goals: Take your medications as prescribed Follow your dietary instruction Follow activity as directed Keep your appointments as scheduled Take your immunizations and boosters as scheduled If your symptoms worsen call your PCP, if no PCP go to Urgent Care Center or Emergency Room For 11/12 questions related to your inpatient stay or results of tests pending at discharge, please contact Dr. Juarez Savage MD at Smoking is Dangerous to Your Health. Avoid second hand smoking
== END 2018-04-17 15:50 | disposition home or self-care (01) ==
LOC: NEPD 08:35 → NEDA 19:53 → H260 20:50
PROVIDERS: ADMIT Psychiatry & Neurology Psychiatry; ATTEND Psychiatry & Neurology Psychiatry